=== PATIENT | female | born 1990 | race Caucasian/White ===

== ENCOUNTER 2019-02-04 16:56 | Inpatient (IN) ==
[2019-02-04] MEDS ORDERED: BUTORPHANOL 2 MG/ML VIAL IV PRN (17:06)
[2019-02-04] MEDS ORDERED: MEPERIDINE 50 MG/1 ML VIAL IV PRN (17:06)
[2019-02-04] MEDS ORDERED: FAMOTIDINE 20 MG/2 ML VIAL IV ONE (17:09)
[2019-02-04] MEDS ORDERED: NALOXONE 0.4 MG/ML VIAL IV PRN (17:09)
[2019-02-04] MEDS ORDERED: diphenhydrAMINE 50 MG/1 ML VIAL IV PRN ×2 (17:09)
[2019-02-04] MEDS ORDERED: PROMETHAZINE 25 MG/1 ML VIAL IM ONE (17:09)
[2019-02-04] MEDS ORDERED: hydrOXYzine HCL 25 MG/1 ML VIAL IM PRN (17:09)
[2019-02-04] MEDS ORDERED: ePHEDrine 50 MG/ML AMP IV PRN (17:09)
[2019-02-04] MEDS ORDERED: LACTATED RINGERS 1,000 ML IV ONE (17:09)
[2019-02-04] MEDS ORDERED: CITRIC ACID/SODIUM CITRATE 30 ML UDCUP PO ONE (17:09)
[2019-02-04] MEDS ORDERED: AMPICILLIN 2,000 MG VIAL ONE (17:20)
[2019-02-04] MEDS ORDERED: SODIUM CHLORIDE 0.9% 100 ML IV ONE (17:21)
[2019-02-04] MEDS ORDERED: LACTATED RINGERS 1,000 ML IV SCH (17:30)
[2019-02-04] MEDS ORDERED: AMPICILLIN INJ 2,000 MG in SODIUM CHLORIDE 0.9% 100 ML IV SCH (17:30)
[2019-02-04] MEDS ORDERED: OXYTOCIN/LR 20 UNIT/1,000 ML BAG IV SCH (17:30)
[2019-02-04] MEDS ORDERED: fentaNYL 2 MCG/ROPIV 0.2% EPID 100 ML EPIDURAL SCH (17:30)
[2019-02-04 17:35] LABS: Basophils % 0.2 % (0.0-0.8); Eosinophils % 0.1 % (0.00-10.9); Hematocrit 41.9 VOL% (35.7-47.0); Hemoglobin 14.4 GM/DL (12.0-16.0); Immature Granulocytes % 0.2 %; Immature Granulocytes Absolute 0.02 #; Lymphocytes # 1.4 10*3/uL (1.4-4.0); Mean Corpuscular HGB Conc 34.4 GM/DL (32-36); Mean Corpuscular Volume 81.5 FL (87-102); Mean Platelet Volume 10.5 FL (9.6-12.0); Neutrophils % 78.5 % (38.7-73.9); Platelet Count 172 T/CUMM (130-400); Red Blood Count 5.14 MC/CUMM (3.8-5.5); Red Cell Distribution Width 13.5 % (9.3-17.3); White Blood Count 8.8 T/CUMM (4-12)
[2019-02-04 18:05] LABS: Albumin 2.8 G/DL (3.4-5.0); Bilirubin,Total 0.4 MG/DL (0.2-1.0); Calcium 8.8 MG/DL (8.5-10.1); Osmolality,Calculated 274.8 MOS/KG (273-304); Total Protein 7.1 G/DL (6.4-8.3)
[2019-02-04] MEDS ORDERED: miSOPROStoL 200 MCG TABLET ONE (18:44)
[2019-02-04] MEDS ORDERED: CARBOPROST TROMETHAMINE 250 MCG/ML AMP IM ONE (18:44)
[2019-02-04] MEDS ORDERED: METHYLERGONOVINE 0.2 MG/1 ML AMP ONE (18:44)
[2019-02-04] MEDS ORDERED: WITCH HAZEL PADS 100/JAR TOP PRN (19:02)
[2019-02-04] MEDS ORDERED: LANOLIN 50% CREAM 0.3 OZ TUBE TOP PRN (19:02)
[2019-02-04] MEDS ORDERED: ACETAMINOPHEN 325 MG TABLET PO PRN (19:02)
[2019-02-04] MEDS ORDERED: RHO(D) IMMUNE GLOBULIN 300 MCG SYRINGE IM ONE (19:02)
[2019-02-04] MEDS ORDERED: OXYTOCIN/LR 20 UNIT/1,000 ML BAG IV ONE (19:02)
[2019-02-04] MEDS ORDERED: BISACODYL 10 MG SUPP RECTAL PRN (19:02)
[2019-02-04] MEDS ORDERED: BENZOCAINE 20%/MENTHOL 0.5% SPRAY 56 GM CAN TOP PRN (19:02)
[2019-02-04] MEDS ORDERED: HYDROCORTISONE 2.5% RECTAL CREAM 30 GM TUBE TOP PRN (19:02)
[2019-02-04] MEDS ORDERED: MEASLES/MUMPS/RUBELLA VACCINE 0.5 ML VIAL SUBCUT ONE (19:02)
[2019-02-04] MEDS ORDERED: DIPH/TET/ACEL PERT BOOSTER VACCINE 0.5 ML VIAL IM ONE (19:02)
[2019-02-04] MEDS ORDERED: oxyCODONE/ACETAMINOPHEN 5-325 MG TABLET PO PRN (19:02)
[2019-02-04] MEDS ORDERED: ONDANSETRON 4 MG/2 ML VIAL IV PRN (19:02)
[2019-02-04 19:36] LABS: Cord Venous Blood HCO3 21.5 MMOL/L; Cord Venous Blood PCO2 43.8 MMHG; Cord Venous Blood PO2 21.7 MMHG
[2019-02-04 19:43] LABS: Cord Arterial Blood HCO3 20.9 MMOL/L
[2019-02-04] MEDS ORDERED: AMPICILLIN INJ 1,000 MG in SODIUM CHLORIDE 0.9% 100 ML IV SCH (21:30)
[2019-02-04] MEDS: DOCUSATE SODIUM 100 MG CAPSULE PO SCH (21:54)
[2019-02-04] MEDS: IBUPROFEN 800 MG TABLET PO PRN (21:55)
[2019-02-05] MEDS: oxyCODONE/ACETAMINOPHEN 5-325 MG TABLET PO PRN ×2 (01:25→08:31)
[2019-02-05 06:33] LABS: Basophils % 0.2 % (0.0-0.8); Eosinophils % 0.2 % (0.00-10.9); Hematocrit 37.6 VOL% (35.7-47.0); Hemoglobin 12.8 GM/DL (12.0-16.0); Immature Granulocytes % 0.5 %; Immature Granulocytes Absolute 0.05 #; Lymphocytes # 2.3 10*3/uL (1.4-4.0); Lymphocytes % 22.1 % (21.3-54.2); Mean Corpuscular Volume 83.7 FL (87-102); Mean Platelet Volume 10.6 FL (9.6-12.0); Monocytes % 5.8 % (1.7-12.7); Neutrophils % 71.2 % (38.7-73.9); Platelet Count 126 T/CUMM (130-400); Red Blood Count 4.49 MC/CUMM (3.8-5.5); Red Cell Distribution Width 13.8 % (9.3-17.3); White Blood Count 10.6 T/CUMM (4-12)
[2019-02-05] MEDS: IBUPROFEN 800 MG TABLET PO PRN ×2 (08:31→16:13)
[2019-02-05] MEDS: DOCUSATE SODIUM 100 MG CAPSULE PO SCH ×2 (10:49→21:20)
[2019-02-06 07:23] VITALS: BP 118/64
[2019-02-06] MEDS ORDERED: INFLUENZA VIRUS VACCINE 0.5 ML SYRINGE IM ONE ×2 (08:00→11:00)
[2019-02-06] MEDS: DOCUSATE SODIUM 100 MG CAPSULE PO SCH (10:03)
== END 2019-02-06 13:10 | disposition home or self-care (01) | DRG 807 ==
LOC: N.LDOUT 16:56 → N.LD 17:03 → N.OB 20:30
PROVIDERS: ADMIT Obstetrics & Gynecology; ATTEND Obstetrics & Gynecology

== ENCOUNTER 2019-02-12 14:12 | Inpatient (IN) ==
[2019-02-12] MEDS ORDERED: FUROSEMIDE 40 MG/4 ML VIAL IV STA (14:27)
[2019-02-12] MEDS ORDERED: ALBUTEROL 2.5 MG/3 ML NEB RESP TX SCH (14:30)
[2019-02-12] MEDS ORDERED: PIPERACILLIN/TAZOBACTAM 3,375 MG in SODIUM CHLORIDE 0.9% 100 ML IV STA (14:58)
[2019-02-12] MEDS ORDERED: methylPREDNISolone SOD SUC 125 MG/2 ML VIAL IV STA (14:59)
[2019-02-12 15:12] LABS: Basophils # 0.1 10*3/uL (0.0-0.2); Basophils % 0.5 % (0.0-0.8); Eosinophils # 0.2 10*3/uL (0.0-0.87); Hematocrit 36.1 VOL% (35.7-47.0); Hemoglobin 11.9 GM/DL (12.0-16.0); Immature Granulocytes % 5.5 %; Lymphocytes # 1.2 10*3/uL (1.4-4.0); Lymphocytes % 8.5 % (21.3-54.2); Mean Corpuscular Volume 84.7 FL (87-102); Mean Platelet Volume 9.1 FL (9.6-12.0); Monocytes % 5.3 % (1.7-12.7); Neutrophils % 79.2 % (38.7-73.9); Platelet Count 364 T/CUMM (130-400); Red Blood Count 4.26 MC/CUMM (3.8-5.5); Red Cell Distribution Width 14.5 % (9.3-17.3); White Blood Count 14.4 T/CUMM (4-12)
[2019-02-12 15:19] LABS: INR 1.1; PT Patient Result 11.4 SECS (9.6-12.2); Partial Thromboplastin Time 32.7 SECS (20.8-36.0)
[2019-02-12 15:21] LABS: Apearance,Urine CLEAR (Clear); Bilirubin,Urine Negative (Negative); Blood, Urine Small mg/dL (Negative); Glucose,Urine (UA) Negative (Negative); Ketones,Urine Negative (Negative); Nitrite,Urine Negative (Negative); Protein,Urine 30 MG/DL; RBC,Urine 11 /HPF (0-4); Squamous Epithelial Cell,Urine Occasional /HPF (0-10); Urine Color Yellow (Yellow); Urine Specific Gravity > 1.060 (1.001-1.035); Urine Urobilinogen < 2.0 EU/DL (0.2-1.0); WBC,Urine 21 /HPF (0-6)
[2019-02-12 15:27] LABS: Barbiturates Screen,Urine Negative (Negative); Benzodiazepines Screen,Urine Negative (Negative); Cannabinoid Screen,Urine Positive (Negative); Opiate Screen,Urine Negative (Negative); Phencyclidine Screen,Urine Negative (Negative)
[2019-02-12 15:39] LABS: Bilirubin,Total 0.5 MG/DL (0.2-1.0); Calcium 8.7 MG/DL (8.5-10.1); Osmolality,Calculated 280.4 MOS/KG (273-304); Total Protein 6.9 G/DL (6.4-8.3)
[2019-02-12] MEDS ORDERED: NICOTINE 21 MG/24 HR PATCH TRANSDERM PRN (15:39)
[2019-02-12] MEDS ORDERED: LACTULOSE 20 GM/30 ML UDCUP PO PRN (15:39)
[2019-02-12] MEDS ORDERED: ACETAMINOPHEN 325 MG TABLET PO PRN (15:39)
[2019-02-12] MEDS ORDERED: ALBUTEROL 2.5 MG/3 ML NEB RESP TX PRN (15:44)
[2019-02-12] MEDS ORDERED: cefTRIAXone 1,000 MG in SYRINGE 1 EACH IV SCH (16:00)
[2019-02-12 16:04] LABS: Band Neutrophils 5 % (0-10); Eosinophils 1 % (0-10); Lymphocytes 7 % (20-55); Platelet Estimate Normal; Segmented Neutrophils 84 % (50-85); Total Cells Counted 100
[2019-02-12 16:12] LABS: Risk Ratio 10.31; Thyroid Stimulating Hormone 3.56 uIU/ml (0.358-3.74); VLDL CHOLESTEROL 41.8 MG/DL
[2019-02-12] MEDS: CLINDAMYCIN INJ 600 MG in PREMIX 1 EACH IV SCH (16:54)
[2019-02-12] MEDS: SODIUM CHLORIDE 0.9% 1,000 ML IV SCH (16:54)
[2019-02-12 17:18] LABS: Hepatitis B Core IgM Quant < 0.05 Index; Hepatitis B Surface Ag Quant 0.13 Index; Hepatitis B Surface Ag Result Negative (Negative); Hepatitis C Virus Ab Quant 0.09 Index; Hepatitis C Virus Ab Result Negative (Negative)
[2019-02-12] MEDS: ENOXAPARIN 40 MG/0.4 ML SYRINGE SUBCUT SCH (17:31)
[2019-02-12] MEDS ORDERED: PNEUMOCOCCAL VACCINE (13 VALENT) 0.5 ML SYRINGE IM ONE (19:14)
[2019-02-12] MEDS: AZITHROMYCIN INJ 500 MG in SODIUM CHLORIDE 0.9% 250 ML IV SCH (19:20)
[2019-02-12] MEDS: ALBUTEROL/IPRATROPIUM 3 ML NEB RESP TX SCH (20:14)
[2019-02-12] MEDS: guaiFENesin/DM ER 600-30 MG TABLET PO SCH (20:46)
[2019-02-12] MEDS: methylPREDNISolone SOD SUC 40 MG/1 ML VIAL IV SCH (23:56)
[2019-02-13] MEDS: ALBUTEROL/IPRATROPIUM 3 ML NEB RESP TX SCH ×4 (00:25→19:28)
[2019-02-13 05:23] LABS: Basophils % 0.3 % (0.0-0.8); Hematocrit 32.9 VOL% (35.7-47.0); Immature Granulocytes % 0.6 %; Immature Granulocytes Absolute 0.08 #; Lymphocytes # 1.2 10*3/uL (1.4-4.0); Lymphocytes % 8.9 % (21.3-54.2); Mean Corpuscular HGB Conc 33.4 GM/DL (32-36); Mean Corpuscular Volume 83.5 FL (87-102); Mean Platelet Volume 9.7 FL (9.6-12.0); Monocytes % 2.4 % (1.7-12.7); NRBC # 0.02 10*3/uL; Neutrophils % 87.8 % (38.7-73.9); Platelet Count 390 T/CUMM (130-400); Red Blood Count 3.94 MC/CUMM (3.8-5.5); Red Cell Distribution Width 14.6 % (9.3-17.3)
[2019-02-13] MEDS: SODIUM CHLORIDE 0.9% 1,000 ML IV SCH ×2 (05:40→17:43)
[2019-02-13 05:48] LABS: Alanine Aminotransferase 405 U/L (13-56); Albumin 1.9 G/DL (3.4-5.0); Alkaline Phosphatase 180 U/L (45-117); Aspartate Amino Transferase 206 U/L (0-37); Bilirubin,Total < 0.39 MG/DL (0.2-1.0); Blood Urea Nitrogen 22 MG/DL (7-18); Calcium 8.8 MG/DL (8.5-10.1); Estimated Glom Filtration Rate 86 ML/MIN; Glucose 140 MG/DL (74-106); Osmolality,Calculated 287.1 MOS/KG (273-304); Total Protein 7.1 G/DL (6.4-8.3)
[2019-02-13 06:13] LABS: Band Neutrophils 1 % (0-10); Lymphocytes 7 % (20-55); Segmented Neutrophils 89 % (50-85); Total Cells Counted 100
[2019-02-13 06:14] LABS: Platelet Estimate Normal
[2019-02-13] MEDS: POTASSIUM CHLORIDE 20 MEQ TABLET PO PRN ×6 (06:44→22:35)
[2019-02-13] MEDS: methylPREDNISolone SOD SUC 40 MG/1 ML VIAL IV SCH ×3 (07:20→22:34)
[2019-02-13] MEDS: PANTOPRAZOLE 40 MG TABLET PO SCH (08:33)
[2019-02-13] MEDS: guaiFENesin/DM ER 600-30 MG TABLET PO SCH ×2 (08:33→20:00)
[2019-02-13] MEDS: CLINDAMYCIN INJ 600 MG in PREMIX 1 EACH IV SCH ×3 (08:33→15:57)
[2019-02-13] MEDS: MULTIVITAMIN (PRENATAL) TABLET PO SCH (08:33)
[2019-02-13 11:01] LABS: % Iron Saturation 8.7 % (18-50)
[2019-02-13 11:08] LABS: ABG Base Excess -0.9 MMOL/L (-2.5-2.5); ABG HCO3 23.6 MMOL/L (20-26); ABG Oxygen Saturation 97.3 % (95-100); ABG PCO2 33.4 MM HG (35-48); ABG PH 7.438 (7.35-7.45); ABG PO2 87.4 MM HG (80-95); ABG TCO2 20.1 MMOL/L (23-27)
[2019-02-13] MEDS: cefTRIAXone 2,000 MG in SYRINGE 1 EACH IV SCH (11:42)
[2019-02-13] MEDS: BENZONATATE 100 MG CAPSULE PO SCH ×3 (11:42→20:00)
[2019-02-13] MEDS: ENOXAPARIN 40 MG/0.4 ML SYRINGE SUBCUT SCH (15:55)
[2019-02-13] MEDS: AZITHROMYCIN INJ 500 MG in SODIUM CHLORIDE 0.9% 250 ML IV SCH (18:21)
[2019-02-13] MEDS: FERROUS SULFATE 325 MG TABLET PO SCH (22:34)
[2019-02-14] MEDS: CLINDAMYCIN INJ 600 MG in PREMIX 1 EACH IV SCH ×3 (00:22→15:11)
[2019-02-14] MEDS: ALBUTEROL/IPRATROPIUM 3 ML NEB RESP TX SCH ×4 (00:55→19:19)
[2019-02-14 04:53] LABS: Basophils % 0.4 % (0.0-0.8); Hematocrit 32.3 VOL% (35.7-47.0); Hemoglobin 10.4 GM/DL (12.0-16.0); Immature Granulocytes % 3.6 %; Immature Granulocytes Absolute 0.37 #; Lymphocytes # 1.6 10*3/uL (1.4-4.0); Lymphocytes % 15.8 % (21.3-54.2); Mean Corpuscular HGB Conc 32.2 GM/DL (32-36); Mean Corpuscular Volume 86.1 FL (87-102); Mean Platelet Volume 9.3 FL (9.6-12.0); Monocytes % 5.3 % (1.7-12.7); NRBC # 0.02 10*3/uL; Neutrophils % 74.9 % (38.7-73.9); Platelet Count 386 T/CUMM (130-400); Red Blood Count 3.75 MC/CUMM (3.8-5.5); Red Cell Distribution Width 15.3 % (9.3-17.3); White Blood Count 10.4 T/CUMM (4-12)
[2019-02-14 05:13] LABS: Calcium 9.1 MG/DL (8.5-10.1); Osmolality,Calculated 288.1 MOS/KG (273-304)
[2019-02-14 05:16] LABS: Albumin 1.9 G/DL (3.4-5.0); Bilirubin,Total 0.5 MG/DL (0.2-1.0); Calcium 9.2 MG/DL (8.5-10.1); Osmolality,Calculated 288.1 MOS/KG (273-304); Total Protein 6.8 G/DL (6.4-8.3)
[2019-02-14 06:00] LABS: Segmented Neutrophils 80 % (50-85); Total Cells Counted 100
[2019-02-14 06:01] LABS: Hypochromasia Slight
[2019-02-14 06:03] LABS: Lymphocytes 15 % (20-55); Platelet Estimate Normal
[2019-02-14] MEDS: SODIUM CHLORIDE 0.9% 1,000 ML IV SCH ×2 (07:12→17:40)
[2019-02-14] MEDS: methylPREDNISolone SOD SUC 40 MG/1 ML VIAL IV SCH ×2 (08:23→21:10)
[2019-02-14] MEDS: guaiFENesin/DM ER 600-30 MG TABLET PO SCH ×2 (08:24→21:09)
[2019-02-14] MEDS: BENZONATATE 100 MG CAPSULE PO SCH ×3 (08:24→21:09)
[2019-02-14] MEDS: AZITHROMYCIN 250 MG TABLET PO SCH (08:24)
[2019-02-14] MEDS: PANTOPRAZOLE 40 MG TABLET PO SCH (08:24)
[2019-02-14] MEDS: FERROUS SULFATE 325 MG TABLET PO SCH ×2 (08:24→21:09)
[2019-02-14] MEDS: MULTIVITAMIN (PRENATAL) TABLET PO SCH (08:24)
[2019-02-14] MEDS: cefTRIAXone 2,000 MG in SYRINGE 1 EACH IV SCH (10:55)
[2019-02-14] MEDS: ENOXAPARIN 40 MG/0.4 ML SYRINGE SUBCUT SCH (15:11)
[2019-02-15] MEDS: ALBUTEROL/IPRATROPIUM 3 ML NEB RESP TX SCH ×4 (00:32→19:22)
[2019-02-15] MEDS: CLINDAMYCIN INJ 600 MG in PREMIX 1 EACH IV SCH ×4 (01:03→23:44)
[2019-02-15] MEDS: SODIUM CHLORIDE 0.9% 1,000 ML IV SCH ×3 (03:49→23:44)
[2019-02-15 06:03] LABS: Basophils % 0.4 % (0.0-0.8); Hemoglobin 10.1 GM/DL (12.0-16.0); Immature Granulocytes Absolute 0.85 #; Lymphocytes # 1.4 10*3/uL (1.4-4.0); Lymphocytes % 15.3 % (21.3-54.2); Mean Corpuscular HGB Conc 31.6 GM/DL (32-36); Mean Corpuscular Volume 87.2 FL (87-102); Mean Platelet Volume 9.3 FL (9.6-12.0); Monocytes % 5.8 % (1.7-12.7); Neutrophils % 69.5 % (38.7-73.9); Platelet Count 327 T/CUMM (130-400); Red Blood Count 3.67 MC/CUMM (3.8-5.5); Red Cell Distribution Width 15.5 % (9.3-17.3); White Blood Count 9.4 T/CUMM (4-12)
[2019-02-15 06:26] LABS: Calcium 8.6 MG/DL (8.5-10.1)
[2019-02-15 06:47] LABS: Band Neutrophils 3 % (0-10); Lymphocytes 17 % (20-55); Myelocytes 1 %; Segmented Neutrophils 73 % (50-85); Total Cells Counted 100
[2019-02-15 06:48] LABS: Anisocytosis 1+; Platelet Estimate Normal
[2019-02-15 07:46] LABS: Alanine Aminotransferase 173 U/L (13-56); Alkaline Phosphatase 134 U/L (45-117); Aspartate Amino Transferase 24 U/L (0-37); Bilirubin,Direct < 0.100 MG/DL (0.0-0.20); Bilirubin,Indirect 0.3 MG/DL (0.0-1.0); Bilirubin,Total < 0.39 MG/DL (0.2-1.0); Total Protein 6.5 G/DL (6.4-8.3)
[2019-02-15] MEDS: BENZONATATE 100 MG CAPSULE PO SCH ×3 (08:45→21:39)
[2019-02-15] MEDS: FERROUS SULFATE 325 MG TABLET PO SCH ×2 (08:45→21:39)
[2019-02-15] MEDS: AZITHROMYCIN 250 MG TABLET PO SCH (08:45)
[2019-02-15] MEDS: MULTIVITAMIN (PRENATAL) TABLET PO SCH (08:45)
[2019-02-15] MEDS: guaiFENesin/DM ER 600-30 MG TABLET PO SCH ×2 (08:45→21:39)
[2019-02-15] MEDS: PANTOPRAZOLE 40 MG TABLET PO SCH (08:45)
[2019-02-15] MEDS: methylPREDNISolone SOD SUC 40 MG/1 ML VIAL IV SCH (08:46)
[2019-02-15] MEDS: cefTRIAXone 2,000 MG in SYRINGE 1 EACH IV SCH (11:02)
[2019-02-15] MEDS: ENOXAPARIN 40 MG/0.4 ML SYRINGE SUBCUT SCH (15:32)
[2019-02-16] MEDS: methylPREDNISolone SOD SUC 40 MG/1 ML VIAL IV SCH ×3 (01:26→20:39)
[2019-02-16] MEDS: ALBUTEROL/IPRATROPIUM 3 ML NEB RESP TX SCH ×4 (01:36→19:56)
[2019-02-16 05:07] LABS: Basophils # 0.1 10*3/uL (0.0-0.2); Basophils % 0.8 % (0.0-0.8); Hematocrit 33.4 VOL% (35.7-47.0); Hemoglobin 10.5 GM/DL (12.0-16.0); Immature Granulocytes % 15.9 %; Immature Granulocytes Absolute 1.52 #; Lymphocytes # 1.5 10*3/uL (1.4-4.0); Lymphocytes % 15.3 % (21.3-54.2); Mean Corpuscular HGB Conc 31.4 GM/DL (32-36); Mean Corpuscular Volume 87.2 FL (87-102); Mean Platelet Volume 9.5 FL (9.6-12.0); Monocytes % 6.8 % (1.7-12.7); NRBC # 0.04 10*3/uL; Neutrophils % 61.2 % (38.7-73.9); Platelet Count 323 T/CUMM (130-400); Red Blood Count 3.83 MC/CUMM (3.8-5.5); White Blood Count 9.6 T/CUMM (4-12)
[2019-02-16 05:23] LABS: Calcium 8.7 MG/DL (8.5-10.1); Osmolality,Calculated 286.3 MOS/KG (273-304)
[2019-02-16 05:27] LABS: Alanine Aminotransferase 138 U/L (13-56); Albumin 2.2 G/DL (3.4-5.0); Alkaline Phosphatase 134 U/L (45-117); Aspartate Amino Transferase 30 U/L (0-37); Bilirubin,Direct < 0.100 MG/DL (0.0-0.20); Bilirubin,Indirect 0.3 MG/DL (0.0-1.0); Total Protein 6.6 G/DL (6.4-8.3)
[2019-02-16 05:58] LABS: Anisocytosis Slight; Band Neutrophils 13 % (0-10); Lymphocytes 20 % (20-55); Metamyelocytes 4 %; Nucleated Red Blood Cells 1 (0-5); Platelet Estimate Normal; Segmented Neutrophils 57 % (50-85); Total Cells Counted 100
[2019-02-16] MEDS: guaiFENesin/DM ER 600-30 MG TABLET PO SCH ×2 (09:24→20:40)
[2019-02-16] MEDS: PANTOPRAZOLE 40 MG TABLET PO SCH (09:24)
[2019-02-16] MEDS: FERROUS SULFATE 325 MG TABLET PO SCH ×2 (09:24→20:40)
[2019-02-16] MEDS: BENZONATATE 100 MG CAPSULE PO SCH ×3 (09:24→20:40)
[2019-02-16] MEDS: AZITHROMYCIN 250 MG TABLET PO SCH (09:24)
[2019-02-16] MEDS: MULTIVITAMIN (PRENATAL) TABLET PO SCH (09:24)
[2019-02-16] MEDS: CLINDAMYCIN INJ 600 MG in PREMIX 1 EACH IV SCH ×2 (09:26→17:22)
[2019-02-16] MEDS: cefTRIAXone 2,000 MG in SYRINGE 1 EACH IV SCH (12:13)
[2019-02-16] MEDS: ENOXAPARIN 40 MG/0.4 ML SYRINGE SUBCUT SCH (17:22)
[2019-02-16] MEDS: SODIUM CHLORIDE 0.9% 1,000 ML IV SCH (18:36)
[2019-02-17] MEDS: ALBUTEROL/IPRATROPIUM 3 ML NEB RESP TX SCH ×4 (00:19→20:10)
[2019-02-17 04:33] LABS: Basophils # 0.1 10*3/uL (0.0-0.2); Basophils % 0.5 % (0.0-0.8); Hematocrit 34.4 VOL% (35.7-47.0); Immature Granulocytes % 20.6 %; Immature Granulocytes Absolute 2.39 #; Lymphocytes # 1.5 10*3/uL (1.4-4.0); Lymphocytes % 12.7 % (21.3-54.2); Mean Corpuscular Volume 87.3 FL (87-102); Mean Platelet Volume 9.2 FL (9.6-12.0); Monocytes % 7.1 % (1.7-12.7); NRBC # 0.04 10*3/uL; Neutrophils % 59.1 % (38.7-73.9); Platelet Count 367 T/CUMM (130-400); Red Blood Count 3.94 MC/CUMM (3.8-5.5); Red Cell Distribution Width 14.6 % (9.3-17.3); White Blood Count 11.6 T/CUMM (4-12)
[2019-02-17 05:00] LABS: Calcium 8.5 MG/DL (8.5-10.1); Osmolality,Calculated 296.6 MOS/KG (273-304)
[2019-02-17 05:56] LABS: Anisocytosis 1+; Band Neutrophils 4 % (0-10); Hypochromasia 1+; Lymphocytes 16 % (20-55); Metamyelocytes 1 %; Microcytosis 1+; Myelocytes 2 %; Nucleated Red Blood Cells 2 (0-5); Polychromasia Slight; Segmented Neutrophils 70 % (50-85); Total Cells Counted 100
[2019-02-17 05:57] LABS: Platelet Estimate Adequate
[2019-02-17] MEDS: FERROUS SULFATE 325 MG TABLET PO SCH ×2 (09:33→21:05)
[2019-02-17] MEDS: AZITHROMYCIN 250 MG TABLET PO SCH (09:33)
[2019-02-17] MEDS: BENZONATATE 100 MG CAPSULE PO SCH ×3 (09:33→21:05)
[2019-02-17] MEDS: MULTIVITAMIN (PRENATAL) TABLET PO SCH (09:33)
[2019-02-17] MEDS: methylPREDNISolone SOD SUC 40 MG/1 ML VIAL IV SCH ×3 (09:33→23:53)
[2019-02-17] MEDS: PANTOPRAZOLE 40 MG TABLET PO SCH (09:34)
[2019-02-17] MEDS: guaiFENesin/DM ER 600-30 MG TABLET PO SCH ×2 (09:34→21:05)
[2019-02-17] MEDS: cefTRIAXone 2,000 MG in SYRINGE 1 EACH IV SCH (12:18)
[2019-02-17] MEDS: ENOXAPARIN 40 MG/0.4 ML SYRINGE SUBCUT SCH (16:55)
[2019-02-18] MEDS: ALBUTEROL/IPRATROPIUM 3 ML NEB RESP TX SCH ×3 (00:50→14:07)
[2019-02-18 05:34] LABS: Basophils # 0.1 10*3/uL (0.0-0.2); Basophils % 0.6 % (0.0-0.8); Eosinophils # 0.2 10*3/uL (0.0-0.87); Eosinophils % 1.3 % (0.00-10.9); Hematocrit 36.6 VOL% (35.7-47.0); Hemoglobin 11.7 GM/DL (12.0-16.0); Immature Granulocytes % 13.2 %; Immature Granulocytes Absolute 1.81 #; Lymphocytes # 3.5 10*3/uL (1.4-4.0); Lymphocytes % 25.4 % (21.3-54.2); Mean Corpuscular Volume 87.1 FL (87-102); Mean Platelet Volume 8.7 FL (9.6-12.0); NRBC # 0.03 10*3/uL; Neutrophils % 53.5 % (38.7-73.9); Platelet Count 387 T/CUMM (130-400); Red Cell Distribution Width 14.6 % (9.3-17.3); White Blood Count 13.7 T/CUMM (4-12)
[2019-02-18 05:50] LABS: Calcium 8.1 MG/DL (8.5-10.1); Osmolality,Calculated 284.1 MOS/KG (273-304)
[2019-02-18 05:57] LABS: Band Neutrophils 1 % (0-10); Eosinophils 2 % (0-10); Hypochromasia 1+; Lymphocytes 20 % (20-55); Microcytosis Slight; Platelet Estimate Adequate; Segmented Neutrophils 71 % (50-85); Total Cells Counted 100
[2019-02-18] MEDS: AZITHROMYCIN 250 MG TABLET PO SCH (09:51)
[2019-02-18] MEDS: BENZONATATE 100 MG CAPSULE PO SCH ×2 (09:51→17:31)
[2019-02-18] MEDS: PANTOPRAZOLE 40 MG TABLET PO SCH (09:52)
[2019-02-18] MEDS: FERROUS SULFATE 325 MG TABLET PO SCH (09:52)
[2019-02-18] MEDS: methylPREDNISolone SOD SUC 40 MG/1 ML VIAL IV SCH (09:52)
[2019-02-18] MEDS: guaiFENesin/DM ER 600-30 MG TABLET PO SCH (09:52)
[2019-02-18] MEDS: MULTIVITAMIN (PRENATAL) TABLET PO SCH (09:52)
[2019-02-18] MEDS: cefTRIAXone 2,000 MG in SYRINGE 1 EACH IV SCH (14:36)
[2019-02-18] MEDS: POTASSIUM CHLORIDE RIDER 10 MEQ in PREMIX 1 EACH IV SCH ×2 (14:45→17:30)
[2019-02-18 16:15] VITALS: BP 150/90
[2019-02-18] MEDS: ENOXAPARIN 40 MG/0.4 ML SYRINGE SUBCUT SCH (17:31)
== END 2019-02-18 16:15 | disposition home or self-care (01) | DRG 776 ==
LOC: EDBD → EDUNIT# → N.ED 14:12 → N.EDINP 15:39 → SUPCPDRO 15:39 → SUATTDRO 15:39 → N.CC 16:36 → N.5E 02-14 16:06
PROVIDERS: ADMIT Family Medicine; ATTEND Internal Medicine